=== PATIENT | male | born 1955 | race Caucasian/White ===

== ENCOUNTER 2019-11-26 07:22 | Outpatient (CLI) | payer BC, SELFPAY ==
--- NOTE | ~2019-11-26 | CT_ITS ---
EXAMINATION: CT abdomen pelvis w con INDICATION: Lower abdominal pain TECHNIQUE: Computed tomographic images of the abdomen and pelvis were obtained after the administrati on of 100 cc of Omnipaque 350 intravenous contrast. The dose-length product (DLP) was 623.57 mGy-cm. Automated exposure control and iterative reconstruction technique were employed. COMPARISON: None available FINDINGS: The lung bases are clear. The heart size is normal. There is a moderate-sized sliding hiata l hernia. Punctate calcifications in an otherwise normal spleen likely represent healed granulomatous disease. The liver, pancreas, and adrenal glands are normal. Stones are present in the nondistended gallbladder. The left kidney is unremarkable. Hypoattenuating lesions of the right kidney measuring u p to 3 mm are too small to characterize but likely represent cysts. There is sigmoid predominant dive rticulosis. There is wall thickening and inflammatory change in the mid sigmoid colon. A multiloculat ed perisigmoid abscess with gas is present which measures approximately 5.9 x 4.4 cm. A portion of th e abscess extends to the left superolateral bladder wall causing mild associated bladder wall thicken ing. The appendix is normal. There are no pathologically enlarged abdominal or pelvic lymph nodes. A tiny fat-containing umbilical hernia is noted. IMPRESSION: 1. Perforated sigmoid diverticulitis with perisigmoid abscess. Recommend surgical consultation and po ssible percutaneous drainage. These findings and recommendations were discussed with Dr. Tevin gonzales MD at 1011 hours on 11/26/2019. Reviewed, dictated and finalized at location A. IMPRESSION: 1. Perforated sigmoid diverticulitis with perisigmoid abscess. Recommend surgic al consultation and possible percutaneous drainage. These findings and recommen dations were discussed with Dr. Tevin Ballard MD at 1011 hours on 11/26/2019.
[2019-11-26 07:45] LABS: Estimated Glomerular Filt Rate > 60
== END 2019-11-26 07:23 | disposition home or self-care (01) ==
PROVIDERS: PCP Internal Medicine; Visit Provider Internal Medicine
DX: R10.30 Lower abdominal pain, unspecified (principal)
CPT/HCPCS: 74177; Q9965

== ENCOUNTER 2019-11-26 15:18 | Inpatient (IN) | payer BC, SELFPAY ==
--- NOTE | ~2019-11-26 | CT_ITS ---
EXAMINATION: CT guide absc cath placement DATE: 11/27/2019 13:25 INDICATION: Perisigmoid abscess. TECHNIQUE: The procedure including the risks, benefits, and alternatives was discussed with the patie nt. Risks discussed included bleeding and infection. The patient understood the risks and benefits an d agreed to proceed. The patient was confirmed to be receiving appropriate antibiotic coverage. The skin overlying the abdomen was prepped and draped in usual sterile fashion. Anesthetic was administe red with 1% lidocaine subcutaneously. Moderate sedation was achieved with 1 mg Versed IV and 50 mcg f entanyl IV. An 18 gauge trochar needle was inserted into the perisigmoid abscess with CT guidance. Th e needle was exchanged over a wire for 6 Danish, 8 Danish, and 9 Danish dilators and then for an 8.5 Danish pigtail catheter. The catheter was stitched to the skin, and a sterile dressing was applied. T he mA was adjusted according to patient size. Iterative reconstruction technique was employed. The do se-length product was 149.63 mGy-cm. There were no immediate complications. FINDINGS: CT images demonstrate the catheter within the fluid collection. 2 mL fluid was aspirated fo r testing. IMPRESSION: 1. Successful CT-guided perisigmoid abscess drainage. 2. 2 mL bloody fluid was sent for aerobic and anaerobic cultures. Reviewed, dictated and finalized at location A.
--- NOTE | 2019-11-26 15:45 | ADMGEN ---
This patient, Jhonny Estes, was admitted to Medical Room 347-. Patient/family oriented to hospital policies and general routines including ID bracelet, bed and alarms, visiting hours, pain management, procedures, bathroom and other care routines, personal items, smoking policy, room service/diet, and visiting hours. Valuables list has been completed. Information on how to activate the Rapid Response Team has been discussed. Patient/Family are encouraged to report perceived risks to care and to ask questions if they do not understand what they are told or what they should do.
[2019-11-26 15:48] VITALS: BP 137/81; PULSE 53; RESP 18; TEMP 36.1; O2SAT 99; BMI 27.3
--- NOTE | 2019-11-26 16:46 | ECG_ITS ---
Measurements Intervals [place] Rate: 97 P: 15 CO: 162 QRS: -3 QRSD: 91 T: 6 QT: 340 QTc: 433 Interpretive Statements SINUS RHYTHM WITH SINUS ARRHYTHMIA NORMAL ECG Electronically Signed On 11-26-2019 19:36:22 CDT by Walter Durham D.O.
--- NOTE | 2019-11-26 16:49 | PM.IMHP ---
H&P: HPI History of Present Illness Date/Time: 11/26/19 16:49 Chief complaint: Abd Abscess Narrative: Jhonny Estes is a 64 year old male who has no known medical history. Patient was supposed to have a colonoscopy but had a Cologuard performed instead and was found to be negative. The patient stated that he has been having some left lower quadrant abdominal pain for about 2 weeks. The patient stated that he called his doctor on Sunday. Patient made appoint with his primary care doctor on Sunday and he suspected that is diverticulitis. The patient was started on Flagyl and Cipro. Patient stated he was starting to feel somewhat better. He was having some chills and was sweating. But no fever was noted. No cough. The patient had a CT scan performed today and it was read as perforated sigmoid diverticulitis with perisigmoid abscess. Recommend surgical consultation and possible percutaneous drainage. The surgeon was notified and he called need spoke about the case. We decided that we could bring the patient and start him on some antibiotics and get a percutaneous drained per Interventional Radiology. Review of Systems Review of Systems: All systems reviewed & are unremarkable except as noted in HPI and below Constitutional: Constitutional: Reports as per HPI and Reports no additional constitutional complaints Eyes: Eyes: Reports as per HPI and Reports no additional eye complaints ENT: Reports system reviewed and no additional complaints, except as documented and Reports Normal hearing present Cardiovascular: Cardiovascular: Reports no additional cardiovascular complaints Respiratory: Respiratory: Reports no additional respiratory complaints and Reports no additional respiratory complaints Gastrointestinal: Gastrointestinal: Reports as per HPI and Reports no additional gastrointestinal complaints Musculoskeletal: Musculoskeletal: Reports no additional musculoskeletal complaints Integumentary/Breasts: Skin/Breast: Reports system reviewed and no additional complaints, except as docu and Reports as per HPI Neurologic: Reports system reviewed and no additional complaints, except as documented, Reports as per HPI and Reports Normal hearing present Psychiatric: Psychiatric: Reports no additional psychiatric complaints and Reports as per HPI Endocrine: Endocrine: Reports no additional endocrine complaints Hematologic/Lymphatic: Hematologic/Lymphatic: Reports no additional hematologic/lymphatic complaints Allergic/Immunologic: Allergic/Immunologic: Reports no additional allergic/immunologic complaints [facility] Past Medical History Medical History (Updated 11/26/19 @ 16:55 by Jolly Guadarrama, [employer]) Chronic GERD Diverticulosis Surgical History Surgical History (Updated 11/26/19 @ 16:55 by Jolly Guadarrama NP) No pertinent past surgical history Family History Family History Sibling Acute myocardial infarction Father Acute myocardial infarction Mother Leukemia Social History Social History (Updated 11/26/19 @ 16:57 by Jolly Guadarrama NP) Social History: the patient is to Meka who is a durable power document review attorney for healthcare. The patient is a full code. The patient has 5 children. He is retired from working [employer]. Patient rarely drinks beer. He has lifelong non smoker. He does not use any marijuana or illicit drugs. Smoking status: Never smoker Smokeless tobacco user: chewing tobacco Alcohol intake: current Drinks per week: 6 Substance use: never Spiritual care concerns: No Meds Home Medications and Allergies Home Medications Medication Instructions Recorded Confirmed Type ciprofloxacin HCl 500 mg PO Q12H 11/26/19 11/26/19 History metronidazole 500 mg PO Q8H 11/26/19 11/26/19 History pantoprazole 40 mg PO QAM 11/26/19 11/26/19 History Allergies Allergy/AdvReac Type Severity Reaction Stat
--- NOTE | 2019-11-26 17:19 | PM.CNGS ---
Assessment and Plan Assessment and plan (1) Diverticulitis of large intestine with perforation and abscess without bleeding: Code(s): K57.20 - Diverticulitis of large intestine with perforation and abscess without bleeding Status: Acute Assessment and Plan: I have reviewed the CT and after discussion with Dr. Quezada, I recommended that patient be admitted for possible IR drainage of abscess and IV antibiotics. This is his 1st episode of diverticulitis. Will follow patient after drainage procedure to assess for resolution and improvement. Discussed with patient possibility of requiring more urgent surgery if there are worsening signs of infection. Also discussed possibilities of recurrent attacks and more complicated cases of diverticulitis. Consider elective sigmoid colectomy in the future to prevent this. Additional Plan Thank you very much for allowing me to aid in the care of this patient. History of Present Illness Consult details Consult date: 11/26/19 Reason for consult: abdominal pain Requesting physician: Tevin Ballard MD Narrative: This is a 64-year-old man who presented as a direct admit to the hospital for an abnormal finding on recent CT abdomen. He presented to his PCP with left lower quadrant pain for the past 2-3 weeks. The patient states this has not been a severe pain and he thought maybe he pulled a muscle doing some yardd work or playing golf. He has been experiencing night sweats but denies any documented fevers. He denies any changes in his bowel habits. He has never had any symptoms like this before. He has not had a colonoscopy before, but he did have a colo guard test which was negative about 1 year ago. There is no known family history of colon cancer or other bowel issues, but he thinks his sister had some kind of surgery on her bowels. The patient had an outpatient CT done this morning which showed evidence of perforated diverticulitis with abscess. He now presents for further treatment of this. Review of Systems Review of Systems: All systems reviewed & are unremarkable except as noted in HPI and below Constitutional: Constitutional: Denies fever(s) and Reports night sweats Eyes: Eyes: Denies change in vision ENT: Denies hearing loss, Denies neck pain and Denies sore throat Cardiovascular: Cardiovascular: Denies chest pain and Denies dyspnea Respiratory: Respiratory: Denies cough, Denies dyspnea and Denies wheezing Gastrointestinal: Gastrointestinal: Reports as per HPI Genitourinary: Genitourinary: Denies hematuria and Denies dysuria Musculoskeletal: Musculoskeletal: Denies arthralgias, Denies joint swelling and Denies neck pain Allergic/Immunologic: Allergic/Immunologic: Denies wheezing PMFSH Past Medical History Medical History Chronic GERD Diverticulosis Surgical History Surgical History No pertinent past surgical history Family History Family History Sibling Acute myocardial infarction Father Acute myocardial infarction Mother Leukemia Social History Social History Social History: the patient is to Meka who is a durable power divorce attorney for healthcare. The patient is a full code. The patient has 5 children. He is retired from working [employer]. Patient rarely drinks beer. He has lifelong non smoker. He does not use any marijuana or illicit drugs. Smoking status: Never smoker Smokeless tobacco user: chewing tobacco Alcohol intake: current Drinks per week: 6 Substance use: never Spiritual care concerns: No Meds Home Medications and Allergies Home Medications Medication Instructions Recorded Confirmed Type ciprofloxacin HCl 500 mg PO Q12H 11/26/19 11/26/19 History metroni
[2019-11-26 17:33] LABS: Magnesium 2.2 mg/dL (1.6-2.3)
[2019-11-26] MEDS: DEXTROSE 5%/0.45% SOD CHL 1,000 ML 100 ML IV CONT (17:34)
[2019-11-26 17:35] LABS: Lactic Acid Reflex 0.9 mmol/L (0.7-2.1)
[2019-11-26 18:18] LABS: Add Urine Microscopic? NO; Appearance Urine Clear (Clear); Bilirubin Urine Negative (Negative); Blood Urine Negative (Negative); Color Urine Straw (Yellow); Glucose Urine UA Negative (Negative); Ketones Urine Negative (Negative); Leukocyte Esterase Ur Negative LEU/UL (Negative); Nitrate Urine Negative (Negative); Protein Urine Negative (Negative); Specific Grav Ur 1.008 (1.001-1.035); Urobilinogen Urine Negative mg/dL (<2.0)
[2019-11-26 20:00] VITALS: BP 128/83; PULSE 101; PULSE 102; RESP 16; TEMP 36.4; O2SAT 98
[2019-11-27] VITALS (19 sets, daily range): BP systolic 116–140; BP diastolic 74–93; PULSE 75–103; RESP 14–20; TEMP 36.6–37; O2SAT 94–99
--- NOTE | 2019-11-27 | ECHO_ITS ---
Patient Info Name: Jhonny Estes Age: 64 years : 1955 Gender: Male Ht: 71 in Wt: 195 lbs BSA: 2.12 m2 HR: 98 bpm BP: 136 / 88 mmHg Technical Quality: Good Exam Date: 11/27/2019 10:05 AM Exam Location: [facility] Pulmonary Exam Room: 347 Patient Status: Inpatient Admit Date: 11/26/2019 Staff Ordering Physician: Jolly Guadarrama NP Traffic Workforce Representative: Sanjana Gray RDCS Attending Provider: Martina Farris MD Referring Physician: Chiara HEREDIA; Exam Type: CA echo doppler color flow Study Info Indications - murmur Complete two-dimensional, color flow and Doppler transthoracic echocardiogram is performed. Summary 1. Complete two-dimensional, color flow and Doppler transthoracic echocardiogram is performed. 2. Left ventricular chamber dimension is normal. 3. Left ventricular systolic function is normal, estimated at 60-65%. 4. The left ventricular diastolic function is grade I diastolic dysfunction. 5. E/e' 8 is minimally elevated. 6. Left atrial chamber dimension is mildly enlarged. 7. No pulmonary hypertension, estimated pulmonary arterial systolic pressure is 26 mmHg. Left Ventricle E/e' 8 is minimally elevated. Left ventricular chamber dimension is normal. Left ventricular systolic function is normal, estimated at 60-65%. The left ventricular diastolic function is grade I diastolic dysfunction. Right Ventricle Right ventricular chamber dimension is normal. Right ventricular systolic function is normal. Left Atria Left atrial chamber dimension is mildly enlarged. Right Atria Right atrial chamber dimension is normal. Aortic Valve The aortic valve is trileaflet. There is no aortic valve stenosis. There is no aortic valve regurgitation. Pulmonic Valve There is no pulmonic regurgitation. Mitral Valve There is no mitral valve stenosis. There is no mitral valve regurgitation. Tricuspid Valve There is no tricuspid valve regurgitation. No pulmonary hypertension, estimated pulmonary arterial systolic pressure is 26 mmHg. Pericardium/Pleural There is no pericardial effusion. Inferior Vena Cava Normal inferior vena cava with >50% collapse upon inspiration consistent with normal right atrial pressure, 5 mmHg. Aorta The aortic root size at the sinus of Valsalva is normal. Left Ventricular Outflow Tract Name Value Normal LVOT 2D LVOT Diameter 2.1 cm LVOT Doppler LVOT Peak Gradient 4 mmHg LVOT Mean Gradient 2 mmHg LVOT VTI 19 cm LVOT VTI/AV VTI Ratio 0.9 LVOT Stroke Volume 66 ml LVOT CO 14.4 l/min LVOT CI 6.8 l/min/m2 Pulmonic Valve Name Value Normal PV Doppler PV Peak Gradient 2
[2019-11-27] MEDS: DEXTROSE 5%/0.45% SOD CHL 1,000 ML 100 ML IV CONT ×2 (04:40→18:31)
[2019-11-27 06:06] LABS: Basophils Percent Auto 0.3 % (0.2-1.2); Eosinophils Percent Auto 0.3 % (0-4.4); Hematocrit 37.9 % (42.0-52.0); Hemoglobin 12.5 g/dL (14.0-18.0); Immature Granulocyte Percent A 0.7 % (0-0.5); Lymphocytes Absolute Auto 1.38 K/mm3 (0.9-3.2); Lymphocytes Percent Auto 9.8 % (18.3-44.2); Mean Corpuscular Hemoglobin 30.9 pg (26-34); Mean Corpuscular Volume 93.6 fl (80-100); Mean Platelet Volume 10.1 fl (7.4-10.4); Monocytes Absolute Auto 1.4 K/mm3 (0.1-0.6); Monocytes Percent Auto 9.7 % (2.6-8.5); Neutrophils Absolute Auto 11.2 K/mm3 (1.3-6.7); Neutrophils Percent Auto 79.2 % (45.5-73.1); Platelet Count Result 358 k/mm3 (150-375); Red Blood Count 4.05 M/mm3 (4.6-6.20); Red Cell Distribution Width 11.9 % (11.5-14.5); White Blood Count 14.2 K/mm3 (4.5-10.0)
[2019-11-27 06:14] LABS: Alanine Aminotransferase 11 U/L (4-50); Albumin Level 3.2 g/dL (3.5-5.1); Alkaline Phosphatase 54 U/L (38-126); Anion Gap 6 mmol/L (8-16); Aspartate Amino Transferase 12 U/L (17-59); Bilirubin,Total 0.3 mg/dL (0.2-1.3); Blood Urea Nitrogen 5 mg/dL (9-20); Calcium 8.4 mg/dL (8.4-10.2); Carbon Dioxide 29 mmol/L (22-30); Chloride 102 mmol/L (98-107); Estimated CRCL calculation 89 ml/min; Estimated Glomerular Filt Rate > 60; Glucose 117 mg/dL (75-110); Potassium 4.5 mmol/L (3.4-5.0); Sodium 137 mmol/L (137-145)
[2019-11-27] MEDS: PANTOPRAZOLE SODIUM IV 40 MG VIAL IV PUSH (08:17)
[2019-11-27 09:11] LABS: INR 1.3; Partial Thromboplastin Time 30.1 SECONDS (22.3-36.8); Prothrombin Time 15.5 Seconds (11.1-14.7)
--- NOTE | 2019-11-27 09:50 | WPDMODSED ---
Moderate Sedation Note-Pt Data Patient Data Diagnosis: Perisigmoid abscess. Present Complaint: Perisigmoid abscess. Procedure to be performed/Plan: CT-guided perisigmoid abscess drainage. Allergies Allergy/AdvReac Type Severity Reaction Status Date / Time No Known Allergies Allergy Verified 11/26/19 16:03 Home Medications Medication Instructions Recorded Confirmed Type ciprofloxacin HCl 500 mg PO Q12H 11/26/19 11/26/19 History metronidazole 500 mg PO Q8H 11/26/19 11/26/19 History pantoprazole 40 mg PO QAM 11/26/19 11/26/19 History Current Medications: Active Medications Dextrose/Sodium Chloride (Dextrose 5% Sodium Chloride 0.45%) 1,000 mls @ 100 mls/hr IV CONT .Q10H [facility] Last Admin: 11/27/19 04:40 Dose: 100 mls/hr Documented by: Piperacillin/Tazobactam/Dextrose (Zosyn 3.375 Gm/D5w 50ml Pm) 3.375 gm in 50 mls @ 100 mls/hr IVPB Q6HR [facility] Last Infusion: 11/27/19 07:00 Dose: Infused Documented by: Ondansetron HCl (Zofran Inj) 4 mg IV PUSH Q6H PRN PRN Reason: Nausea And Vomiting Pantoprazole Sodium (Protonix Iv) 40 mg IV PUSH QAM [facility] Last Admin: 11/27/19 08:17 Dose: 40 mg Documented by: Sedation/Anesthesia: No previous sedation/anesthesia problems (including family history). PMFSH Past Medical History Medical History Chronic GERD Diverticulosis Surgical History Surgical History No pertinent past surgical history Family History Family History Sibling Acute myocardial infarction Father Acute myocardial infarction Mother Leukemia Social History Social History Social History: the patient is to Meka who is a durable power civil litigation attorney for healthcare. The patient is a full code. The patient has 5 children. He is retired from working [employer]. Patient rarely drinks beer. He has lifelong non smoker. He does not use any marijuana or illicit drugs. Smoking status: Never smoker Smokeless tobacco user: chewing tobacco Alcohol intake: current Drinks per week: 6 Substance use: never Spiritual care concerns: No Mod Sed Physical Exam Physical Exam Pre Procedural Exam: Normal: Lungs, Heart Rate and Heart Rhythm and Variation: Airway (Mallampati class I.) and Abdomen (Mild abdominal tenderness on left.) Hours since solid foods: 24 Hours since liquid intake: 12 Internal Medicine - PN: Obj Da Vital Signs Vital Signs: Vital Signs - 24 hr 11/26/19 15:48 11/26/19 20:00 11/27/19 00:00 Temperature 36.1 C L 36.4 C Pulse Rate 53 L 101 H 87 Respiratory Rate 18 16 Blood Pressure 137/81 128/83 Pulse Oximetry 99 98 11/27/19 01:02 11/27/19 04:00 11/27/19 05:30 Temperature 37.0 C 36.6 C Pulse Rate 100 98 98 Respiratory Rate 16 14 Blood Pressure 129/74 136/88 Pulse Oximetry 99 98 11/27/19 08:00 Temperature Pulse Rate 83 Respiratory Rate Blood Pressure Pulse Oximetry Intake/Output Intake/Output: Intake & Output 11/24/19 11/25/19 11/26/19 11/27/19 23:59 23:59 23:59 23:59 Intake Total 590 1550 Output Total 2125 Balance 590 -575 Meds/Results Medications: Active Medications Generic Name Dose Route Start Last Admin Trade Name Freq PRN Reason Stop Dose Admin Dextrose/Sodium Chloride 1,000 mls @ 100 mls/hr 11/26/19 16:45 11/27/19 04:40 Dextrose 5% Sodium Chloride 0.45% IV CONT 100 mls/hr .Q10H EMILIANO Administration Piperacillin/Tazobactam/Dextrose 3.375 gm in 50 mls @ 100 mls/hr 11/26/19 17:00 11/27/19 07:00 Zosyn 3.375 Gm/D5w 50ml Pm IVPB Infused Q6HR EMILIANO Infusion Ondansetron HCl 4 mg 11/26/19 16:43 Zofran Inj IV PUSH Q6H PRN Nausea And Vomiting Pantoprazole Sodium 40 mg 11/27/19 09:00 11/27/19 08:17 Protonix Iv IV PUSH 40 mg QAM EMILIANO Administra
--- NOTE | 2019-11-27 12:20 | PM.IMPN ---
Progress Note: A&P Assessment and Plan (1) Diverticulitis of large intestine with perforation and abscess without bleeding: Code(s): K57.20 - Diverticulitis of large intestine with perforation and abscess without bleeding Status: Acute Assessment and Plan: CT a/p shows perforated sigmoid diverticulitis with perisigmoid abscess. Pain is well controlled. Patient is afebrile. He has mild leukocytosis at 14.2. Plan for drainage of abscess by Interventional Radiology this afternoon. General surgery has been consulted and recommendations are appreciated. Continue IV Zosyn and IV fluids NPO diet while awaiting percutaneous drain. Blood cultures are pending (2) Chronic GERD: Code(s): K21.9 - Gastro-esophageal reflux disease without esophagitis Status: Chronic Assessment and Plan: Asymptomatic at this time. Continue Protonix Subjective Date/time seen: 11/27/19 12:20 Interval history: Date of service: 11/27/2019 Mr. Estes is a 64 year old male with a history of GERD and diverticulosis who is seen in follow up for diverticulitis with abscess. He reports he is feeling well at this time. He endorses some mild lower abdominal pain in both the RLQ and LLQ but reports it has improved. He is developing an appetite and has inquired about when he will be able to eat something. We discussed that he cannot eat prior to his abscess drainage. He denies nausea or vomiting. He had a soft, formed bowel movement yesterday afternoon and reports he typically has a bowel movement every morning. He did not have a BM today. He denies melena or hematochezia. He denies dysuria or hematuria. He denies weakness, dizziness, lightheadedness, fever, chills, headaches, body aches, shortness of breath, cough, chest pain, or palpitations. Review of Systems Review of Systems: Narrative: A 12 point review of systems was reviewed with pertinent positives and negatives as per HPI. Exam Narrative: Exam Narrative: Mr. Estes is a well nourished 64 year old male who is lying supine in bed. He appears comfortable and is in NARD. HR 98, BP 136/88, RR 14, T 98.0, 98% on room air Constitutional: NARD, comfortable, well nourished Neuro: awake, alert and oriented x4, speech clear, no focal neuro deficits noted HEENMT: normocephalic, atraumatic, EOMI, sclerae anicteric, moist oral mucosa, tongue midline, nares patent Neck: supple, no lymphadenopathy Respiratory: fine bibasilar inspiratory crackles, nonlabored breathing Cardio: regular rate, regular rhythm with S1-S2 Abdomen: nondistended, normoactive bowel sounds, soft, nontender to palpation, no guarding or rigidity Extremities: no edema, erythema, cyanosis, clubbing, or tenderness to palpation, DP pulses 2+ bilaterally Skin: no rashes or lesions, warm and dry Psych: appropriate mood and affect, judgement and insight intact Objective Data Vital Signs Vital Signs: Vital Signs - 24 hr 11/26/19 15:48 11/26/19 20:00 11/27/19 00:00 Temperature 97.0 F L 97.6 F Pulse Rate 53 L 101 H 87 Respiratory Rate 18 16 Blood Pressure 137/81 128/83 Pulse Oximetry 99 98 11/27/19 01:02 11/27/19 04:00 11/27/19 05:30 Temperature 98.6 F 98 F Pulse Rate 100 98 98 Respiratory Rate 16 14 Blood Pressure 129/74 136/88 Pulse Oximetry 99 98 11/27/19 08:00 Temperature Pulse Rate 83 Respiratory Rate Blood Pressure Pulse Oximetry Intake/Output Intake/Output: Intake & Output 11/24/19 11/25/19 11/26/19 11/27/19 23:59 23:59 23:59 23:59 Intake Total 590 1550 Output Total 2525 Balance 590 -975 Meds/Results Medications: Active Medications Generic Name Dose Route Start Last Admin Trade Name Deoq PRN Reason Stop Dose Admin Dextrose/Sodium Chloride 1,000 mls @ 100 mls/hr 11/26/19 16:45 11/27/19 04:40 Dextrose 5% Sodium Chloride 0.45% IV CONT 100 mls/hr .Q10H EMILIANO Administration Piperacillin/Tazobactam/Dextrose 3.375 gm i
--- NOTE | 2019-11-27 12:49 | PC.NURSE ---
Patient to radiology for procedure per stretcher.
[2019-11-27] MEDS: LACTATED RINGERS 1,000 ML 100 ML IV CONT (12:54)
[2019-11-27] MEDS: MIDAZOLAM HCL 2 MG/2 ML VIAL 1 MG IV PUSH (13:01)
--- NOTE | 2019-11-27 13:42 | PC.NURSE ---
Patient returned from procedure per bed.
--- NOTE | 2019-11-27 16:22 | PM.PNGS ---
Progress Note: A&P Assessment and Plan (1) Diverticulitis of large intestine with perforation and abscess without bleeding: Code(s): K57.20 - Diverticulitis of large intestine with perforation and abscess without bleeding Status: Acute Assessment and Plan: monitor drain output, continue Zosyn. If WBC better tomorrow, will possibly be able to discharge tomorrow with drain. Subjective Subjective Date/Time Seen: 11/27/19 16:22 Doing well after drainage procedure today. No fevers. Pain controlled. Exam GI: GI Palp: Yes Soft to palpation, Yes Tenderness to palpation present (GI) (LLQ) and No Guarding due to palpation present (GI) Other: Drain with bloody purulent drainge Objective Data Vital Signs Vital Signs: Vital Signs - 24 hr 11/26/19 20:00 11/27/19 00:00 11/27/19 01:02 Temperature 36.4 C 37.0 C Pulse Rate 101 H 87 100 Respiratory Rate 16 16 Blood Pressure 128/83 129/74 Pulse Oximetry 98 99 11/27/19 04:00 11/27/19 05:30 11/27/19 08:00 Temperature 36.6 C Pulse Rate 98 98 83 Respiratory Rate 14 Blood Pressure 136/88 Pulse Oximetry 98 11/27/19 12:00 11/27/19 12:46 11/27/19 12:51 Temperature Pulse Rate 100 102 H 103 H Respiratory Rate 20 17 Blood Pressure 140/90 132/90 Pulse Oximetry 98 96 11/27/19 12:56 11/27/19 13:01 11/27/19 13:06 Temperature Pulse Rate 102 H 99 101 H Respiratory Rate 20 20 19 Blood Pressure 139/92 H 136/92 H 130/82 Pulse Oximetry 98 95 94 11/27/19 13:11 11/27/19 13:16 11/27/19 13:21 Temperature Pulse Rate 99 98 92 Respiratory Rate 15 14 16 Blood Pressure 129/93 H 129/85 128/89 Pulse Oximetry 95 95 96 11/27/19 13:26 11/27/19 13:31 11/27/19 15:23 Temperature 36.8 C Pulse Rate 103 H 97 96 Respiratory Rate 17 19 16 Blood Pressure 116/83 120/90 130/89 Pulse Oximetry 95 96 98 11/27/19 16:00 Temperature Pulse Rate 86 Respiratory Rate Blood Pressure Pulse Oximetry Intake/Output Intake/Output: Intake & Output 11/24/19 11/25/19 11/26/19 11/27/19 23:59 23:59 23:59 23:59 Intake Total 590 1800 Output Total 3075 Balance 590 -1275 Meds/Results Medications: Active Medications Generic Name Dose Route Start Last Admin Trade Name Freq PRN Reason Stop Dose Admin Dextrose/Sodium Chloride 1,000 mls @ 100 mls/hr 11/26/19 16:45 11/27/19 04:40 Dextrose 5% Sodium Chloride 0.45% IV CONT 100 mls/hr .Q10H EMILIANO Administration Piperacillin/Tazobactam/Dextrose 3.375 gm in 50 mls @ 100 mls/hr 11/26/19 17:00 11/27/19 15:57 Zosyn 3.375 Gm/D5w 50ml Pm IVPB Infused Q6HR EMILIANO Infusion Lactated Ringer's 1,000 mls @ 100 mls/hr 11/27/19 12:50 11/27/19 13:28 Lr - Lactated Ringers Iv IV CONT Infused .Q10H EMILIANO Infusion Acetaminophen 1,000 mg in 100 mls @ 400 mls/hr 11/27/19 15:33 11/27/19 16:08 Ofirmev 1,000 Mg Ivpb IVPB 11/28/19 15:34 400 mls/hr Q6H PRN Administration Pain Rated 4-6 Ondansetron HCl 4 mg 11/26/19 16:43 Zofran Inj IV PUSH Q6H PRN Nausea And Vomiting Pantoprazole Sodium 40 mg 11/27/19 09:00 11/27/19 08:17 Protonix Iv IV PUSH 40 mg QAM EMILIANO Administration Radiology Results: ITS Impressions Catheter Placement CT 11/27/19 13:44 IMPRESSION: 1. Successful CT-guided perisigmoid abscess drainage. 2. 2 mL bloody fluid was sent for aerobic and anaerobic cultures. Labs Labs: Laboratory Results - last 24 hr 11/26/19 11/26/19 11/26/19 17:01 17:01 17:47 WBC RBC Hgb Hct MCV MCH MCHC RDW Plt Count MPV Immature Gran % (Auto) Neut % (Auto) Lymph % (Auto) [place] % (Auto) Eos % (Auto) Baso % (Auto) Lymph # (Auto) [place] # (Auto) Eos # (Auto) Baso # (Auto) Abs Immat Gran (auto) Absolute Neuts (auto) Absolute Nucleated RBC Nucleated RBC % PT INR APTT Sodium Potassium Chloride Carbon Dioxide Anion Gap BUN Cr
[2019-11-28] VITALS: BP 122/82; PULSE 68; PULSE 73; RESP 16; TEMP 36.8; O2SAT 98
[2019-11-28 04:00] VITALS: PULSE 74
[2019-11-28 05:07] VITALS: BP 122/88; PULSE 81; RESP 12; TEMP 36.6; O2SAT 99
[2019-11-28] MEDS: DEXTROSE 5%/0.45% SOD CHL 1,000 ML 100 ML IV CONT (05:14)
[2019-11-28 06:31] LABS: Basophils Percent Auto 0.4 % (0.2-1.2); Eosinophils Absolute Auto 0.1 K/mm3 (0-0.3); Eosinophils Percent Auto 0.5 % (0-4.4); Hematocrit 38.3 % (42.0-52.0); Hemoglobin 12.7 g/dL (14.0-18.0); Immature Granulocyte Absolute 0.12 K/mm3 (0.00-0.031); Immature Granulocyte Percent A 1.1 % (0-0.5); Lymphocytes Absolute Auto 1.54 K/mm3 (0.9-3.2); Lymphocytes Percent Auto 13.8 % (18.3-44.2); Mean Corpuscular HGB Conc 33.2 g/dl (32-36); Mean Corpuscular Hemoglobin 31.1 pg (26-34); Mean Corpuscular Volume 93.9 fl (80-100); Mean Platelet Volume 9.9 fl (7.4-10.4); Monocytes Absolute Auto 1.1 K/mm3 (0.1-0.6); Monocytes Percent Auto 9.8 % (2.6-8.5); Neutrophils Absolute Auto 8.3 K/mm3 (1.3-6.7); Neutrophils Percent Auto 74.4 % (45.5-73.1); Platelet Count Result 394 k/mm3 (150-375); Red Blood Count 4.08 M/mm3 (4.6-6.20); Red Cell Distribution Width 11.9 % (11.5-14.5); White Blood Count 11.1 K/mm3 (4.5-10.0)
[2019-11-28 06:50] LABS: Anion Gap 6 mmol/L (8-16); Blood Urea Nitrogen 3 mg/dL (9-20); Calcium 8.6 mg/dL (8.4-10.2); Carbon Dioxide 29 mmol/L (22-30); Chloride 102 mmol/L (98-107); Estimated CRCL calculation 89 ml/min; Estimated Glomerular Filt Rate > 60; Glucose 111 mg/dL (75-110); Potassium 4.7 mmol/L (3.4-5.0); Sodium 137 mmol/L (137-145)
[2019-11-28 08:00] VITALS: PULSE 80
[2019-11-28 09:40] VITALS: RESP 16; O2SAT 99
[2019-11-28] MEDS: PANTOPRAZOLE SODIUM IV 40 MG VIAL IV PUSH (09:40)
--- NOTE | 2019-11-28 11:52 | PCNSR ---
On 11/28/19, the student, Benitez Ward, provided care and completed [facility] documentation on this patient. I have reviewed the student's documentation and agree with the findings.
[2019-11-28 12:00] VITALS: BP 121/74; PULSE 93; RESP 16; TEMP 36.4; O2SAT 99
--- NOTE | 2019-11-28 12:07 | PM.PNGS ---
Progress Note: A&P Assessment and Plan (1) Diverticulitis of large intestine with perforation and abscess without bleeding: Code(s): K57.20 - Diverticulitis of large intestine with perforation and abscess without bleeding Status: Acute Assessment and Plan: Cash Applications Associate consulted OK to discharge with drain today. Follow up in 1 week for drain removal. Continue antibiotics for 7-10 more days Subjective Subjective Date/Time Seen: 11/28/19 12:07 Pain controlled. Tolerating diet. No fevers. Exam GI: Inspection: other (Drain bloody/purulent) GI Palp: Yes Soft to palpation, No Tenderness to palpation present (GI) and No Guarding due to palpation present (GI) Auscultation: normal bowel sounds Objective Data Vital Signs Vital Signs: Vital Signs - 24 hr 11/27/19 12:46 11/27/19 12:51 11/27/19 12:56 Temperature Pulse Rate 102 H 103 H 102 H Respiratory Rate 20 17 20 Blood Pressure 140/90 132/90 139/92 H Pulse Oximetry 98 96 98 11/27/19 13:01 11/27/19 13:06 11/27/19 13:11 Temperature Pulse Rate 99 101 H 99 Respiratory Rate 20 19 15 Blood Pressure 136/92 H 130/82 129/93 H Pulse Oximetry 95 94 95 11/27/19 13:16 11/27/19 13:21 11/27/19 13:26 Temperature Pulse Rate 98 92 103 H Respiratory Rate 14 16 17 Blood Pressure 129/85 128/89 116/83 Pulse Oximetry 95 96 95 11/27/19 13:31 11/27/19 15:23 11/27/19 16:00 Temperature 36.8 C Pulse Rate 97 96 86 Respiratory Rate 19 16 Blood Pressure 120/90 130/89 Pulse Oximetry 96 98 11/27/19 20:00 11/28/19 00:00 11/28/19 04:00 Temperature 36.6 C 36.8 C Pulse Rate 82 73 74 Respiratory Rate 16 16 Blood Pressure 123/77 122/82 Pulse Oximetry 98 98 11/28/19 05:07 11/28/19 08:00 Temperature 36.6 C Pulse Rate 81 80 Respiratory Rate 12 Blood Pressure 122/88 Pulse Oximetry 99 Intake/Output Intake/Output: Intake & Output 11/25/19 11/26/19 11/27/19 11/28/19 23:59 23:59 23:59 23:59 Intake Total 590 8830 2392 Output Total 2907 2200 Balance 590 785 192 Meds/Results Medications: Active Medications Generic Name Dose Route Start Last Admin Trade Name Freq PRN Reason Stop Dose Admin Acetaminophen 650 mg 11/28/19 07:23 Tylenol Tablet PO Q4H PRN Mild Pain (1-3) or Fever Hydrocodone Bitart/Acetaminophen 1 tab 11/28/19 07:23 [place] 5-325 Mg PO Q4H PRN Pain Rated 4-6 Piperacillin/Tazobactam/Dextrose 3.375 gm in 50 mls @ 100 mls/hr 11/26/19 17:00 11/28/19 12:00 Zosyn 3.375 Gm/D5w 50ml Pm IVPB Infused Q6HR EMILIANO Infusion Ondansetron HCl 4 mg 11/26/19 16:43 Zofran Inj IV PUSH Q6H PRN Nausea And Vomiting Pantoprazole Sodium 40 mg 11/27/19 09:00 11/28/19 09:40 Protonix Iv IV PUSH 40 mg QAM EMILIANO Administration Radiology Results: ITS Impressions Catheter Placement CT 11/27/19 13:44 IMPRESSION: 1. Successful CT-guided perisigmoid abscess drainage. 2. 2 mL bloody fluid was sent for aerobic and anaerobic cultures. Labs Labs: Laboratory Results - last 24 hr 11/28/19 11/28/19 06:09 06:09 WBC 11.1 H RBC 4.08 L Hgb 12.7 L Hct 38.3 L MCV 93.9 MCH 31.1 MCHC 33.2 RDW 11.9 Plt Count 394 H MPV 9.9 Immature Gran % (Auto) 1.1 H Neut % (Auto) 74.4 H Lymph % (Auto) 13.8 L [place] % (Auto) 9.8 H Eos % (Auto) 0.5 Baso % (Auto) 0.4 Lymph # (Auto) 1.54 [place] # (Auto) 1.1 H Eos # (Auto) 0.1 Baso # (Auto) 0.0 Abs Immat Gran (auto) 0.12 H Absolute Neuts (auto) 8.3 H Absolute Nucleated RBC 0.0 Nucleated RBC % 0.0 Sodium 137 Potassium 4.7 Chloride 102 Carbon Dioxide 29 Anion Gap 6 L BUN 3 L Creatinine 0.80 Estim Creat Clear Calc 89 Estimated GFR > 60 Glucose 111 H Calcium 8.6 Quality VTE Prophylaxis VTE prophylaxis: mechanical ordered
--- NOTE | 2019-11-28 13:51 | PM.DS ---
DS: Admitting Diagnosis Admitting Diagnosis Admitting Diagnosis: Abd Abscess DS: Discharge Diagnosis Discharge Diagnosis (1) Diverticulitis of large intestine with perforation and abscess without bleeding: Code(s): K57.20 - Diverticulitis of large intestine with perforation and abscess without bleeding Status: Acute Assessment and Plan: CT a/p showed perforated sigmoid diverticulitis with perisigmoid abscess. He had abscess drainage performed by Interventional Radiology on 11/27/2019. His pain was well controlled and he was able to advance to a low-fiber diet. He was seen in consultation by general surgery and will follow-up with Dr. Burnette in 1 week. His drain will remain in place until follow-up visit. He was started on IV Zosyn and transitioned to p.o. ciprofloxacin and metronidazole, which he had already been prescribed by his PCP. Leukocytosis improved and he remained afebrile. Preliminary blood cultures showed NGTD and final cultures will be monitored. Preliminary anaerobic culture of abscess showing many Gram-positive cocci. Aerobic cultures pending. Cultures will be monitored and antibiotic therapy will be tailored accordingly. Patient is aware that he will be contacted if changes to antibiotic regimen are required. (2) Chronic GERD: Code(s): K21.9 - Gastro-esophageal reflux disease without esophagitis Status: Chronic Assessment and Plan: Remained asymptomatic. Continue Protonix DS: Summary Hospital Course Reason for hospitalization: Diverticulitis with abscess Hospital Course: date of admission: 11/26/2019 date of discharge: 11/28/2019 Jhonny Estes is a healthy 64-year-old male with no past medical history who was directly admitted to the hospitalist service on 11/26/2019 following referral from his PCP Dr. Tevin Ballard. The patient had been having left lower quadrant abdominal pain ongoing for about 2 weeks. He was seen by his PCP, who sent the patient to have a CT scan. He started him on Flagyl and Cipro. His CT a/p showed perforated sigmoid diverticulitis with perisigmoid abscess with surgical consultation recommended. Dr. Ballard spoke with general surgeon Dr. Burnette and arranged for direct admission. At presentation, vital signs were stable, patient was afebrile, and WBC 14.2. Patient underwent CT-guided abscess drainage on 11/27/2019. He had minimal bloody drainage output. 2 ml of bloody fluid was sent for aerobic and anaerobic cultures which are pending at this time. The patient was feeling well and was eager for discharge. His abdominal pain had improved significantly. He was able to tolerate a low-fiber diet, which he should continue. His leukocytosis improved and he remained afebrile. Given his overall improvement, he was determined to no longer require inpatient care. Patient was comfortable with discharge home, where he lives with his . He was educated on drain management. His drain will remain in place until follow-up with Dr. Burnette in 1 week. He will continue p.o. Cipro and Flagyl. Final cultures will be monitored, and antibiotic therapy will be tailored as needed. I discussed this with the patient and informed that I would call him if any changes needed to be made to his antibiotic regimen. We discussed worrisome signs and symptoms for which he should return and he was educated on his medications. All questions were answered. He was discharged in hemodynamically stable condition on 11/28/2019. Status at Discharge Functional status at discharge: independent ambulation Overall status at discharge: patient is progressing back to baseline Time Spent with Patient Time attestation: Total time spent providing and/or coordinating discharge services:45 minutes Time spent: Greater than 30 minutes Exam Narrative: Exam Narrative: Mr. Estes is a well nourished 64 year old male who is lying supine in bed. He appears comfortable and is in NARD. HR 81,
== END 2019-11-28 18:07 | disposition home or self-care (01) | DRG 392 ==
PROVIDERS: Nurse Practitioner; Physician Assistant; Radiology Diagnostic Radiology; Admitting Provider Family Medicine; PCP Surgery; Visit Provider Family Medicine
PROC: 0W9G30Z Drainage of Peritoneal Cavity with Drainage Device, Percutaneous Approach (ICD-10-PCS; principal; 2019-11-27 12:00)
DX: K57.20 Diverticulitis of large intestine with perforation and abscess without bleeding (principal); K21.9 Gastro-esophageal reflux disease without esophagitis; F17.220 Nicotine dependence, chewing tobacco, uncomplicated; Z79.899 Other long term (current) drug therapy
CPT/HCPCS: 36415; 75989; 80048; 80053; 81003; 83605; 83735; 85025; 85610; 85730; 87040; 87070; 87075; 87076; 87077; 87205; 93005; 93306; C1769; C9113; J0131; J2250; J2543; J3010; J7120

== ENCOUNTER 2019-12-22 07:38 | Outpatient (CLI) | payer BC, SELFPAY ==
--- NOTE | ~2019-12-22 | CT_ITS ---
EXAMINATION: CT abdomen pelvis w con DATE: 12/22/2019 08:05 INDICATION: Follow-up of diverticular abscess; drain removed 2.5 weeks ago TECHNIQUE: Computed tomography (CT) of the abdomen and pelvis was performed with 100 cc Omnipaque 350 intravenous contrast. Automated exposure control and iterative reconstruction technique were employe d. Exam dose: 526.49 mGy-cm total exam DLP. COMPARISON: 11/26/2019 CT abdomen pelvis FINDINGS: The lung bases are clear. Normal heart size. No pericardial or pleural effusion. Moderate size sliding hiatal hernia. There are numerous gallstones. No gallbladder wall thickening or pericholecystic fluid or inflammatio n. No bile duct dilatation. Several small hepatic cysts measuring up to 7 mm. No bile duct dilatation . Normal splenic size. No pancreatic mass lesion, calcification or ductal dilatation. Normal morphology of the adrenal glands. No renal mass lesion or urinary tract calculus or hydroureteronephrosis. Normal caliber of the abdominal aorta. No intraperitoneal or retroperitoneal or pelvic mass lesion or adenopathy or ascites. There are numerous diverticula of the left colon, particularly the sigmoid area. Previous sigmoid div erticular abscess cavities have largely resolved with only a couple of residual small air-containing cavities and mild residual pericolic fat stranding. No drainable abscess is identified. Normal appendix. No bowel obstruction or intraperitoneal free air. Prostate enlargement and calcification. Mild diffuse bladder wall thickening. Diffuse idiopathic skeletal hyperostosis of the lower thoracic and upper lumbar spine. No suspicious osteolytic or osteoblastic lesions are noted.. IMPRESSION: Nearly resolved diverticular abscesses Cholelithiasis Moderate-sized hiatal hernia Hepatic cysts Prostate enlargement and calcification Reviewed, dictated and finalized at [facility]. Reviewed, dictated and finalized at [facility].
== END 2019-12-22 07:39 | disposition home or self-care (01) ==
LOC: CHSIMG 07:40
PROVIDERS: PCP Internal Medicine; Visit Provider Surgery
DX: K57.20 Diverticulitis of large intestine with perforation and abscess without bleeding (principal)
CPT/HCPCS: 74177; Q9965

== ENCOUNTER 2020-03-08 01:59 | Outpatient (CLI) | payer BC, SELFPAY ==
[2020-03-08 18:35] LABS: SARS-CoV-2 RNA PCR Negative
== END 2020-03-08 02:00 | disposition home or self-care (01) ==
LOC: ANHCOVIDDT 01:59
PROVIDERS: PCP Internal Medicine; Visit Provider Surgery
DX: Z01.812 Encounter for preprocedural laboratory examination (principal); Z20.828 Contact with and (suspected) exposure to other viral communicable diseases
CPT/HCPCS: 87635; C9803; U0003

== ENCOUNTER 2020-03-11 00:22 | Day surgery (SDC) | payer BC, SELFPAY ==
[2020-03-05 08:54] VITALS: BMI 27.9
--- NOTE | 2020-03-10 12:19 | P.PNAN_ITS ---
Anes - Initial Pre Proc Eval Procedure: Operation Date: 03/11/20 09:00 Proposed Procedures p Colonoscopy - Jordan Burnette DO Date/Time: 03/10/20 12:19 Surgeon: Jordan Burnette DO Pre Op Diagnosis: Diverticulitis Patient Data Age: 65 Gender: M Height: 1.8 m Weight: 91 kg Allergies Allergy/AdvReac Type Severity Reaction Status Date / Time No Known Allergies Allergy Verified 03/11/20 07:54 Home Medications Medication Instructions Recorded Confirmed Type pantoprazole 40 mg PO QAM 11/26/19 03/11/20 History Patient hx anesthesia problems: none Family hx anesthesia problems: none [facility] Past Medical History Medical History (Updated 03/10/20 @ 12:19 by Giovany Moore DO) Chronic GERD Diverticulosis Hiatal hernia Surgical History Surgical History No pertinent past surgical history Family History Family History Sibling Acute myocardial infarction Father Acute myocardial infarction Mother Leukemia Social History Social History Social History: the patient is to Meka who is a durable power securities attorney for healthcare. The patient is a full code. The patient has 5 children. He is retired from working [employer]. Patient rarely drinks beer. He has lifelong non smoker. He does not use any marijuana or illicit dr ugs. Years smoked: 35 Smoking status: Never smoker Smokeless tobacco user: chewing tobacco Alcohol intake: current Drinks per week: 12 Alcohol use details: BEER Substance use: never Substance use type: does not use Living arrangements: with family Spiritual care concerns: No Anes - Eval Final PreProcedure Day of Procedure 03/10/20 12:19 Patient weight: overweight Heart: regular rate and rhythm Lungs: clear to auscultation and normal air movement Airway: Mallampati scale class 1 and special considerations poor dentition Neurological: alert and oriented Last oral intake: >/= 8 hours ASA classification: II Emergent: no Anesthetic plan: proceed Anesthesia type and monitoring: general GIVS and standard monitoring Informed Consent: The patient's anesthetic plan and its attendant risks and benefits were discussed with the patient/family/POA. Questions were solicited and answers provided to the satisfaction of the patient/family/POA.
[2020-03-11 07:56] VITALS: BP 122/69; PULSE 71; RESP 16; TEMP 37.1; O2SAT 100
[2020-03-11] MEDS: LACTATED RINGERS 1,000 ML 150 ML IV CONT (08:04)
--- NOTE | 2020-03-11 09:07 | PM.IMHP ---
H&P: HPI History of Present Illness Date/Time: 03/11/20 09:07 Chief Complaint: diverticulitis Narrative: Jhonny Estes is a 65 year old male with a prior hx of diverticulitis with abscess. He was hospitalized and a drain was placed in the abscess. He has had a couple minor flareups of diverticulitis since. He has never had a colonoscopy before. Review of Systems Review of Systems: All systems reviewed & are unremarkable except as noted in HPI and below Constitutional: Constitutional: Denies chills, Denies fever(s), Denies headache(s) and Denies weight loss Eyes: Eyes: Denies change in vision ENT: Denies dizziness, Denies headache(s), Denies neck mass and Denies throat swelling Cardiovascular: Cardiovascular: Denies chest pain, Denies lightheadedness and Denies dyspnea Respiratory: Respiratory: Denies cough, Denies dyspnea and Denies wheezing Gastrointestinal: Gastrointestinal: Denies abdominal pain, Denies change in bowel habits, Denies nausea and Denies vomiting Genitourinary: Genitourinary: Denies hematuria and Denies dysuria Musculoskeletal: Musculoskeletal: Reports as per HPI Integumentary/Breasts: Skin/Breast: Reports as per HPI Neurologic: Denies dizziness and Denies headache(s) Allergic/Immunologic: Allergic/Immunologic: Denies throat swelling and Denies wheezing PMFSH Past Medical History Medical History Chronic GERD Diverticulosis Hiatal hernia Surgical History Surgical History No pertinent past surgical history Family History Family History Sibling Acute myocardial infarction Father Acute myocardial infarction Mother Leukemia Social History Social History Social History: the patient is to Meka who is a durable power state attorney for healthcare. The patient is a full code. The patient has 5 children. He is retired from working [employer] specific [employer]. Patient rarely drinks beer. He has lifelong non smoker. He does not use any marijuana or illicit drugs. Years smoked: 35 Smoking status: Never smoker Smokeless tobacco user: chewing tobacco Alcohol intake: current Drinks per week: 12 Alcohol use details: BEER Substance use: never Substance use type: does not use Living arrangements: with family Spiritual care concerns: No Meds Home Medications and Allergies Home Medications Medication Instructions Recorded Confirmed Type pantoprazole 40 mg PO QAM 11/26/19 03/11/20 History Allergies Allergy/AdvReac Type Severity Reaction Status Date / Time No Known Allergies Allergy Verified 03/11/20 07:54 Vital Signs Vital Signs - 24 hr 03/11/20 07:56 Temperature 37.1 C Pulse Rate 71 Respiratory Rate 16 Blood Pressure 122/69 Pulse Oximetry 100 Exam Const: General: no acute distress and alert Orientation/consciousness: patient oriented x3 HENMT: Head: normocephalic and atraumatic Ears: hearing grossly normal bilaterally General nose exam: Normal nares present Mouth: Yes Normal oral and palatal mucosa present Eyes: Periorbital: periorbital findings normal Sclera: sclerae normal EOM: EOMs intact bilaterally Neck: Neck: normal visual inspection, no lymphadenopathy and trachea midline Chest: Chest palpation & inspection: normal inspection of the chest Resp: Effort & Inspection: normal respiratory effort Auscultation: clear to auscultation bilaterally Cardio: Jugular venous distension: no JVD Rate: regular rate Rhythm: regular rhythm Heart sounds: S1 normal heart sound present and S2 normal heart sound present Peripheral pulses: Peripheral pulses 2+ throughout GI: Inspection: normal to inspection GI Palp: Yes Soft to palpation, No Tenderness to palpation present (GI), No Guarding due to palpat
[2020-03-11 10:06] VITALS: BP 115/67; PULSE 77; RESP 22; O2SAT 98
[2020-03-11 10:16] VITALS: BP 109/64; PULSE 75; RESP 20; O2SAT 100
[2020-03-11 10:26] VITALS: BP 120/72; PULSE 74; RESP 20; O2SAT 99
== END 2020-03-11 10:44 | disposition home or self-care (01) ==
PROVIDERS: PCP Internal Medicine; Visit Provider Surgery
PROC: 0DJD8ZZ Inspection of Lower Intestinal Tract, Via Natural or Artificial Opening Endoscopic (ICD-10-PCS; CPT 45378; principal; 2020-03-11 09:00)
DX: K57.30 Diverticulosis of large intestine without perforation or abscess without bleeding (principal); K64.8 Other hemorrhoids; D12.2 Benign neoplasm of ascending colon; K63.5 Polyp of colon; K21.9 Gastro-esophageal reflux disease without esophagitis; K44.9 Diaphragmatic hernia without obstruction or gangrene; Z72.0 Tobacco use
CPT/HCPCS: 45385; 88305; J2704; J7120

== ENCOUNTER 2021-04-01 11:14 | Outpatient (CLI) | payer OTHER, SELFPAY ==
[2021-04-01 11:50] LABS: Basophils Absolute Auto 0.02 K/mm3 (0.00-0.10); Basophils Percent Auto 0.3 % (0.0-1.0); Eosinophils Absolute Auto 0.08 K/mm3 (0.02-0.50); Eosinophils Percent Auto 1.1 % (1.0-6.0); Hematocrit 45.6 % (40.0-54.0); Hemoglobin 15.1 g/dL (14.0-18.0); Immature Granulocyte Absolute 0.02 K/mm3 (0.00-0.00); Immature Granulocyte Percent A 0.3 % (0.0-0.0); Lymphocytes Absolute Auto 1.94 K/mm3 (1.10-4.50); Lymphocytes Percent Auto 25.7 % (18.0-42.0); Mean Corpuscular HGB Conc 33.1 g/dL (32.0-36.0); Mean Corpuscular Hemoglobin 31.4 pg (27.0-31.0); Mean Corpuscular Volume 94.8 fL (78.0-102.0); Mean Platelet Volume 9.9 fl (8.7-11.0); Monocytes Percent Auto 7.9 % (2.0-11.0); Neutrophils Absolute Auto 4.9 K/mm3 (1.7-7.2); Neutrophils Percent Auto 64.7 % (50.0-70.0); Platelet Count Result 252 K/mm3 (150-420); Red Blood Count 4.81 M/mm3 (4.70-6.10); Red Cell Distribution Width 12.3 % (11.6-14.4); White Blood Count 7.6 K/mm3 (4.8-10.8)
[2021-04-01 12:12] LABS: Add Urine Microscopic? NO; Appearance Urine Clear (Clear); Bilirubin Urine Negative (Negative); Blood Urine Negative (Negative); Color Urine Light Yellow (Yellow); Glucose Urine UA Negative (Negative); Ketones Urine Negative (Negative); Leukocyte Esterase Ur Negative (Negative); Nitrate Urine Negative (Negative); Protein Urine Negative (Negative); Specific Grav Ur <= 1.005 (1.010-1.020); Urobilinogen Urine 0.2 mg/dL (0.2-1.0); pH Urine 6.5 (5.0-8.0)
[2021-04-01 12:55] LABS: Alanine Aminotransferase 18 U/L (16-63); Albumin Level 3.8 g/dL (3.4-5.0); Alkaline Phosphatase 50 U/L (46-116); Anion Gap 12 mmol/L (8-16); Aspartate Amino Transferase 11 U/L (15-37); Bilirubin,Total 0.3 mg/dL (0.00-1.00); Blood Urea Nitrogen 10 mg/dL (7-18); Calcium 9.2 mg/dL (8.5-10.1); Carbon Dioxide 25 mmol/L (21-32); Chloride 103 mmol/L (98-108); Cholesterol 204 mg/dL (0-200); Estimated Glomerular Filt Rate > 60; Glucose 86 mg/dL (70-99); HDL Direct 50 mg/dL (40-60); LDL Cholesterol Calculated 125 mg/dL (<130); Osmolality Calculated 288 mOsm/kg (285-295); Prostate Specific Antigen 1.2 ng/mL (< OR = 4.0); Sodium 140 mmol/L (136-145); Total Protein 7.3 g/dL (6.4-8.2); Triglycerides 144 mg/dL (0-150)
== END 2021-04-01 11:15 | disposition home or self-care (01) ==
LOC: CHSLAB 11:16
PROVIDERS: PCP Internal Medicine; Visit Provider Internal Medicine
DX: Z00.00 Encounter for general adult medical examination without abnormal findings (principal); Z12.5 Encounter for screening for malignant neoplasm of prostate
CPT/HCPCS: 36415; 80053; 80061; 81003; 84153; 85025; G0103

== ENCOUNTER 2022-03-06 16:45 | Emergency (ER) | payer MEDICARE, SELFPAY ==
--- NOTE | ~2022-03-06 | XR_ITS ---
EXAMINATION: XR chest 1V portable Exam Date/Time: 03/06/2022 17:24 PURCHASING DEPARTMENT CLERK HISTORY: COVID+ TODAY DIARRHEA, HX HITIAL HERNIA Comparison: 06/23/2015. RESULT: Lines, tubes, and devices: None. Lungs and pleura: Clear. Cardiomediastinal silhouette: Stable. Other: No acute osseous or upper abdominal finding. IMPRESSION: No acute cardiopulmonary process. Reviewed, dictated and finalized at [facility]. HASING DEPARTMENT CLERK
[2022-03-06 16:45] VITALS: BP 148/82; PULSE 94; RESP 16; TEMP 36.9; O2SAT 95
[2022-03-06 16:50] VITALS: BP 148/82; PULSE 94; RESP 16; TEMP 36.9; O2SAT 95
--- NOTE | 2022-03-06 16:54 | ED.ABDPAIN ---
HPI - Abdominal Pain General Chief Complaint: Unspecified Stated Complaint: rectal bleeding Time Seen by Provider: 03/06/22 16:53 Source: patient Mode of arrival: ambulatory History of Present Illness HPI narrative: 67-year-old male with a history of diverticulosis / diverticulitis with perforation presents to the ER with A 1 day history of -- hemorrhoidal bleeding and hemorrhoidal pain. Noted to have blood on the wipes. no active bleeding. He can feel hemorrhoids out of the anal verge. -- Tested positive for COVID but does not have any upper respiratory symptoms or shortness of breath. Has minimal nasal congestion and cough. patient received 2 doses of COVID vaccination in addition to a booster dose. MD elicited complaint: other ( Rectal bleeding.) Pertinent past history: constipation and diverticulitis Onset (ago): day(s) ( Started today) Radiation: none Migration to: no migration Exacerbating factors: nothing Relieving factors: nothing Related Data Home Medications Medication Instructions Recorded Confirmed pantoprazole 40 mg tablet,delayed 40 mg PO QAM 11/26/19 03/06/22 release Allergies Allergy/AdvReac Type Severity Reaction Status Date / Time No Known Allergies Allergy Verified 03/06/22 16:56 Review of Systems Review of Systems: All systems reviewed & are unremarkable except as noted in HPI and below Constitutional: Constitutional: Reports as per HPI and Reports no additional constitutional complaints Eyes: Eyes: Reports as per HPI and Reports no additional eye complaints ENT: Reports system reviewed and no additional complaints, except as documented and Reports as per HPI Cardiovascular: Cardiovascular: Reports as per HPI and Reports no additional cardiovascular complaints Respiratory: Respiratory: Reports as per HPI and Reports no additional respiratory complaints Gastrointestinal: Gastrointestinal: Reports as per HPI and Reports no additional gastrointestinal complaints Comments: Had some diarrhea hemorrhoidal bleeding- no spontaneous bleeding. Blood is present on the wipes. Genitourinary: Genitourinary: Reports no additional male genitourinary complaints and Reports as per HPI Musculoskeletal: Musculoskeletal: Reports no additional musculoskeletal complaints and Reports as per HPI Integumentary/Breasts: Skin/Breast: Reports system reviewed and no additional complaints, except as docu and Reports as per HPI Neurologic: Reports system reviewed and no additional complaints, except as documented and Reports as per HPI Psychiatric: Psychiatric: Reports no additional psychiatric complaints and Reports as per HPI Endocrine: Endocrine: Reports no additional endocrine complaints and Reports as per HPI Hematologic/Lymphatic: Hematologic/Lymphatic: Reports no additional hematologic/lymphatic complaints and Reports as per HPI Allergic/Immunologic: Allergic/Immunologic: Reports no additional allergic/immunologic complaints and Reports as per HPI PMFSH Past Medical History Medical History Chronic GERD Diverticulosis Hiatal hernia Surgical History Surgical History No pertinent past surgical history Family History Family History Sibling Acute myocardial infarction Father Acute myocardial infarction Mother Leukemia Social History Social History Social History: the patient is to Meka who is a durable power energy attorney for healthcare. The patient is a full code. The patient has 5 children. He is retired from working [employer]. Patient rarely drinks beer. He has lifelong non smoker. He does not use any marijuana or illicit drugs. Years smoked: 35 Smoking status: Never smoker Smokeless tobacco user: chewing tobacco Alcohol intake:
[2022-03-06 17:32] LABS: Basophils Absolute Auto 0.01 K/mm3 (0.00-0.10); Basophils Percent Auto 0.2 % (0.0-1.0); Eosinophils Absolute Auto 0.04 K/mm3 (0.02-0.50); Eosinophils Percent Auto 0.8 % (1.0-6.0); Hematocrit 39.4 % (37.0-46.0); Hemoglobin 13.3 g/dL (12.4-15.3); Immature Granulocyte Absolute 0.01 K/mm3 (0.00-0.00); Immature Granulocyte Percent A 0.2 % (0.0-0.0); Lymphocytes Absolute Auto 1.52 K/mm3 (1.10-4.50); Lymphocytes Percent Auto 31.1 % (18.0-42.0); Mean Corpuscular HGB Conc 33.8 g/dL (32.0-36.0); Mean Corpuscular Hemoglobin 31.8 pg (27.0-31.0); Mean Corpuscular Volume 94.3 fL (78.0-102.0); Mean Platelet Volume 10.2 fl (8.7-11.0); Monocytes Absolute Auto 0.52 K/mm3 (0.10-0.90); Monocytes Percent Auto 10.7 % (2.0-11.0); Neutrophils Absolute Auto 2.8 K/mm3 (1.7-7.2); Platelet Count Result 184 K/mm3 (150-420); Red Blood Count 4.18 M/mm3 (4.70-6.10); White Blood Count 4.9 K/mm3 (4.8-10.8)
[2022-03-06 17:47] LABS: Partial Thromboplastin Time 29.6 SEC (23.90-30.70); Prothrombin Time 10.7 Seconds (9.50-12.10)
[2022-03-06 17:50] LABS: Alanine Aminotransferase 55 U/L (16-63); Albumin Level 3.3 g/dL (3.4-5.0); Alkaline Phosphatase 52 U/L (46-116); Anion Gap 10 mmol/L (8-16); Aspartate Amino Transferase 20 U/L (15-37); Bilirubin,Total 0.3 mg/dL (0.00-1.00); Blood Urea Nitrogen 12 mg/dL (7-18); Calcium 8.8 mg/dL (8.5-10.1); Carbon Dioxide 25 mmol/L (21-32); Chloride 103 mmol/L (98-108); Estimated CRCL calculation 75 ml/min; Estimated Glomerular Filt Rate > 60; Glucose 89 mg/dL (70-99); Osmolality Calculated 284 mOsm/kg (285-295); Potassium 4.2 mmol/L (3.5-5.1); Sodium 138 mmol/L (136-145); Total Protein 7.2 g/dL (6.4-8.2)
[2022-03-06 18:06] VITALS: BP 135/84; PULSE 72; RESP 16; TEMP 36.6; O2SAT 96
== END 2022-03-06 18:08 | disposition home or self-care (01) ==
PROVIDERS: Emergency Provider Internal Medicine Critical Care Medicine; PCP Internal Medicine
DX: U07.1 COVID-19 (principal); K64.4 Residual hemorrhoidal skin tags; K21.9 Gastro-esophageal reflux disease without esophagitis
CPT/HCPCS: 36415; 71045; 80053; 85025; 85610; 85730; 99283

== ENCOUNTER 2025-02-25 08:20 | Outpatient (CLI) | payer MEDICARE, SELFPAY ==
[2025-02-25 08:37] LABS: Hematocrit 48.6 % (37.0-46.0); Hemoglobin 16.1 g/dL (12.4-15.3); Mean Corpuscular HGB Conc 33.1 g/dL (32-36); Mean Corpuscular Hemoglobin 31.8 pg (27.0-31.0); Mean Corpuscular Volume 95.9 fL (78.0-102.0); Platelet Count Result 311 K/mm3 (150-420); Red Blood Count 5.07 M/mm3 (4.70-6.10); White Blood Count 6.7 K/mm3 (4.8-10.8)
[2025-02-25 08:38] LABS: Add Urine Microscopic? YES; Appearance Urine Clear (Clear); Glucose Urine UA Negative (Negative); Leukocyte Esterase Ur Trace (Negative); Nitrate Urine Negative (Negative); Specific Grav Ur 1.015 (1.010-1.020)
[2025-02-25 09:11] LABS: Alanine Aminotransferase 14 U/L (6-50); Albumin Level 4.5 g/dL (3.5-5.1); Alkaline Phosphatase 56 U/L (38-126); Anion Gap 12 mmol/L (4-12); Aspartate Amino Transferase 21 U/L (17-59); Bilirubin,Total 0.5 mg/dL (0.2-1.3); Blood Urea Nitrogen 12 mg/dL (9-20); Calcium 9.8 mg/dL (8.4-10.2); Carbon Dioxide 27 mmol/L (22-30); Chloride 102 mmol/L (98-107); Cholesterol 217 mg/dL (0-200); Estimated Glomerular Filt Rate > 60; Glucose 94 mg/dL (65-110); HDL Direct 62 mg/dL; Osmolality Calculated 291 mOsm/kg (285-295); Potassium 5.5 mmol/L (3.4-5.0); Sodium 141 mmol/L (137-145); Total Protein 7.4 g/dL (6.3-8.2); Triglycerides 80 mg/dL (<150)
[2025-02-25 09:41] LABS: Prostate Specific Antigen 1.7 ng/mL (< OR = 4.0); Thyroid Stimulating Hormone 0.913 uIU/mL (0.465-4.680)
== END 2025-02-25 08:21 | disposition home or self-care (01) ==
PROVIDERS: PCP Internal Medicine; Visit Provider Internal Medicine
DX: K21.9 Gastro-esophageal reflux disease without esophagitis (principal)
CPT/HCPCS: 36415; 80053; 80061; 81001; 84153; 84443; 85027; G0103